=== PATIENT | male | born 1990 | race Two or more races ===

== ENCOUNTER 2020-12-28 14:06 | Emergency (ER) | payer MEDICAID, OTHER ==
[~2020-12-28] VITALS: Ht 177.8 cm; Wt 86.2 kg
[2020-12-28 14:14] VITALS: BP 122/78
[2020-12-28] MEDS ORDERED: methylPREDNISolone SOD SUCC 125 MG/2ML VIAL ONE (14:26)
[2020-12-28] MEDS ORDERED: diphenhydrAMINE HCL 50 MG CAPSULE ONE (14:26)
[2020-12-28] MEDS: methylPREDNISolone SOD SUCC 125 MG/2ML VIAL IM ONE (14:32)
[2020-12-28] MEDS: diphenhydrAMINE HCL 50 MG CAPSULE PO ONE (14:32)
--- NOTE | 2020-12-28 14:36 | NUR ---
left eye swelling and forehead s/p bee sting, no sob 100% on room air. PT AAOX4, VSS. RR EVEN & UNLABORED. DENIES CP, SOB, DIZZINESS AT THIS TIME. PT SEEN & EVAL'D BY DR. SOTO. MEDICATED PER ERMD ORDER, PT LEIDY WELL. WILL CONT TO MONITOR.
--- NOTE | 2020-12-28 16:00 | NUR ---
PT ELOPED, ERMD AWARE.
== END 2020-12-28 16:01 | disposition left against medical advice (07) ==
LOC: ER 14:15
DX: T63.441A Toxic effect of venom of bees, accidental (unintentional), initial encounter (principal); R22.0 Localized swelling, mass and lump, head; H02.841 Edema of right upper eyelid; H02.845 Edema of left lower eyelid; Y92.89 Other specified places as the place of occurrence of the external cause
CPT/HCPCS: 96372; 99283; J2930; Q0163

== ENCOUNTER 2021-03-08 14:11 | Emergency (ER) | payer MEDICAID ==
[~2021-03-08] VITALS: Ht 170.2 cm; Wt 81.6 kg
[2021-03-08] MEDS ORDERED: SULF-10 PO (14:35)
[2021-03-08] MEDS ORDERED: CEPH500C2 PO (14:35)
[2021-03-08 14:37] VITALS: BP 146/96
== END 2021-03-08 15:05 | disposition home or self-care (01) ==
LOC: ER 14:17
DX: L02.411 Cutaneous abscess of right axilla (principal)

== ENCOUNTER 2021-06-11 17:19 | Emergency (ER) | payer SELFPAY ==
[~2021-06-11] VITALS: Ht 180.3 cm; Wt 81.6 kg
[~2021-06-11 17:19] MED LIST: CEPH500C2 PO; SULF-10 PO
[2021-06-11 18:10] VITALS: BP 140/77
== END 2021-06-12 00:29 | disposition left against medical advice (07) ==
LOC: ER 17:24
DX: Z53.21 Procedure and treatment not carried out due to patient leaving prior to being seen by health care provider (principal); M79.89 Other specified soft tissue disorders